=== PATIENT | female | born 1940 | race Caucasian/White ===

== ENCOUNTER → 2017-01-24 | Outpatient (CLI) | payer OTHER, MEDICARE ==
[~2017-01-24] VITALS: Ht 160 cm; Wt 68.5 kg
[~2017-01-24] MED LIST: ALPHAGAN P100 DROP/5 BOTH EYES; ANUSOL-HC21 GM PR; Aspirin E.C. PO; Ativan PO; CARDIZEM CD240 MG PO; CEFTIN250 MG PO; CEFUROXIME500 MG PO; CHERATUSSIN AC473 ML PO; DALIRESP500 MCG PO; DILTIAZEM 24HR240 MG PO; DUONEB 2.5-0.5 M3 ML IH; FLEXERIL5 MG PO; FLONASE16 G1 BOTH NARES; HYDROMET SYRUP480 ML PO; LEVAQUIN500 MG PO; LEVOCETIRIZINE D5 MG PO; LEVOFLOXACIN500 MG PO; Levothroid,Synthroid PO; PRAVACHOL40 MG PO; PREDNISONE PO; PREDNISONE20 M1 PO; PREDNISONE20 MG PO; PREDNISONE5 MG PO; PREDNISONE50 MG PO; PRINIVIL20 MG PO; PROAIR HFA8.5 GM IH; RAYOS5 MG PO; REFRESH OPTIVE10 ML BOTH EYES; SINGULAIR10 MG PO; SPIRIVA1 INHALATI IH; SYMBICORT60 INHALAT IH; SYNTHROID100 MCG PO; SYNTHROID50 MCG PO; Singulair PO; THEO-DUR,THEOC300 MG PO; THEOCHRON100 MG PO; XALATAN2.5 ML BOTH EYES; XYZAL5 MG PO; ZESTORETIC 20-1 EAC2 PO; ZESTORETIC,P1 TABLE1 PO; ZITHROMAX500 MG PO; [UNRECOGNIZED DRUG - REMARK]; [UNRECOGNIZED DRUG - REMARK]; predniSONE PO
== END | disposition home or self-care (01) ==
LOC: AMB 13:38
DX: K57.30 Diverticulosis of large intestine without perforation or abscess without bleeding (principal); K62.1 Rectal polyp; R19.7 Diarrhea, unspecified; K64.8 Other hemorrhoids
CPT/HCPCS: 88305

== ENCOUNTER 2017-10-19 14:49 | Observation (INO) | payer OTHER, MEDICARE ==
[~2017-10-19] VITALS: Ht 160 cm; Wt 65.1 kg
[~2017-10-19 14:49] MED LIST changes: +ALPHAGAN P100 DROP/5 LEFT EYE; -PRINIVIL20 MG PO; -THEOCHRON100 MG PO; +THEOCHRON300 MG PO; +ZESTRIL40 MG PO
[2017-10-19 15:46] LABS: HEMATOCRIT 41.8 % (36.0-46.0); HEMOGLOBIN 14.2 G/DL (11.9-15.5); MCH 31.1 PG (29.0-34.0); MCV 91.5 FL (83-99); PLATELET COUNT 261 K/uL (156-360); RBC DIS.WIDTH-CV 12.6 % (11.8-14.6); RBC DIS.WIDTH-SD 42.1 % (39-53); RED BLOOD COUNT 4.57 M/uL (3.80-5.20); WHITE BLOOD COUNT 7.3 K/uL (4.1-10.2)
[2017-10-19 16:07] LABS: TROP-I INTERPRETATION NEGATIVE; TROPONIN-I 0.24 ng/mL (0.0-0.30)
[2017-10-19 16:20] LABS: CHLORIDE 105 mEq/L (99-109); SODIUM 143 mEq/L (136-147)
[2017-10-19 16:21] LABS: GLUCOSE 93 mg/dL (70-99)
[2017-10-19 16:25] LABS: CREATININE 0.9 mg/dL (0.6-1.3); GFR ESTIMATE (CALCULATED) > 59 mL/min/
[2017-10-19 16:26] LABS: UREA NITROGEN (BUN) 14 mg/dL (9-23)
[2017-10-19 16:37] LABS: ALBUMIN 4.2 g/dL (3.2-4.8)
[2017-10-19 16:39] LABS: TOTAL PROTEIN 7.2 g/dL (6.4-8.3)
[2017-10-19 16:39] LABS: PTT 27.5 SEC (25-37)
[2017-10-19 16:41] LABS: TOTAL BILIRUBIN 0.7 mg/dL (0.0-1.0)
[2017-10-19 16:42] LABS: ALKALINE PHOSPHATASE 69 IU/L (3-129)
[2017-10-19 16:45] LABS: ALT (GPT) 9 IU/L (3-49); AST (GOT) 18 IU/L (2-34); DIRECT BILIRUBIN 0.2 mg/dL (0.0-0.3)
[2017-10-19 16:46] LABS: LIPASE 5 U/L (1.0-51.0)
[2017-10-19] MEDS ORDERED: THEO-24300 MG PO (17:46)
[2017-10-19] MEDS ORDERED: SYMBICORT60 INHALAT IH (17:47)
[2017-10-19] MEDS ORDERED: SINGULAIR10 MG PO (17:47)
[2017-10-19] MEDS ORDERED: VITAMIN D31000 UNI2 PO (17:47)
[2017-10-19] MEDS ORDERED: ST. JOSEPH ASPI81 MG PO (17:47)
[2017-10-19 19:47] VITALS: BP 164/85
[2017-10-19 22:12] LABS: TROP-I INTERPRETATION NEGATIVE
[2017-10-20 00:17] VITALS: BP 158/74
[2017-10-20 03:27] VITALS: BP 123/88
[2017-10-20 05:48] LABS: TROP-I INTERPRETATION NEGATIVE; TROPONIN-I 0.22 ng/mL (0.0-0.30)
[2017-10-20 06:19] LABS: CHLORIDE 107 MEQ/L (99-109); CREATININE 0.9 MG/DL (0.6-1.3); GFR ESTIMATE (CALCULATED) > 59 mL/min/; GLUCOSE 113 mg/dL (70-99); POTASSIUM 3.7 MEQ/L (3.7-5.4); SODIUM 143 MEQ/L (136-147); UREA NITROGEN (BUN) 11 mg/dL (9-23)
[2017-10-20 08:15] VITALS: BP 123/88
[2017-10-20 11:22] VITALS: BP 146/72
[2017-10-20] MEDS ORDERED: ATORVASTATIN CA40 MG PO (13:14)
[2017-10-20] MEDS ORDERED: NITROSTAT0.4 MG SL (13:14)
[2017-10-20] MEDS ORDERED: IMDUR60 MG PO (13:14)
[2017-10-20] MEDS ORDERED: DILTIAZEM 24HR240 MG PO (13:15)
== END 2017-10-20 15:47 | disposition home or self-care (01) ==
LOC: EME 14:49 → EDOF 17:04 → 5WEST 17:04 → EDOF 17:04 → ENRESERV 17:15 → 5WEST 19:24
PROVIDERS: Internal Medicine
DX: I20.0 Unstable angina (principal); R94.31 Abnormal electrocardiogram [ECG] [EKG]; R10.13 Epigastric pain; J96.10 Chronic respiratory failure, unspecified whether with hypoxia or hypercapnia; J44.9 Chronic obstructive pulmonary disease, unspecified; Z99.81 Dependence on supplemental oxygen; I10 Essential (primary) hypertension; E78.5 Hyperlipidemia, unspecified; Z87.891 Personal history of nicotine dependence; Z90.710 Acquired absence of both cervix and uterus
CPT/HCPCS: 71046; 80048; 80076; 83690; 84484; 85027; 85610; 85730; 93005; 93306; 94640; 94640 76; 94760; 94799; 99202; 99281; 99285; G0378; J7030; J7512; S0028

== ENCOUNTER 2018-03-14 07:29 | Day surgery (SDC) | payer OTHER, MEDICARE ==
[~2018-03-14] VITALS: Ht 160 cm; Wt 131.0 kg
[~2018-03-14 07:29] MED LIST changes: +ATORVASTATIN CA40 MG PO; +IMDUR60 MG PO; +LIPITOR40 MG PO; +NITROSTAT0.4 MG SL; +PAXIL10 MG PO; +ST. JOSEPH ASPI81 MG PO; +THEO-24300 MG PO; +VITAMIN D31000 UNI2 PO; +ZANTAC300 MG PO
[2018-03-14 08:15] VITALS: BP 128/78
[2018-03-14 16:00] VITALS: BP 153/77
[2018-03-14 18:55] VITALS: BP 116/60
[2018-03-14 22:08] VITALS: BP 134/63
[2018-03-14 23:08] VITALS: BP 120/80
[2018-03-15 00:26] LABS: APPEARANCE CLEAR ((CLEAR)); BILIRUBIN NEGATIVE; BLOOD SMALL; COLOR STRAW ((YELLOW)); GLUCOSE (STRIP) NEGATIVE; KETONES NEGATIVE; LEUKOCYTES NEGATIVE; NITRITE NEGATIVE; PROTEIN (STRIP) NEGATIVE; SPECIFIC GRAVITY 1.006 (1.000-1.030); UROBILINOGEN 0.2 MG/DL (0.2-1.0)
[2018-03-15 00:33] LABS: BACTERIA NONE SEEN /HPF; EPITHELIAL CELLS NONE SEEN /HPF; MUCUS NONE SEEN /LPF; RED BLOOD CELLS 0-5 /HPF (0-5); WHITE BLOOD CELLS NONE SEEN /HPF (0-5)
[2018-03-15 03:57] VITALS: BP 147/70
[2018-03-15 07:32] VITALS: BP 175/79
[2018-03-15] MEDS ORDERED: DALIRESP500 MCG PO (08:26)
[2018-03-15] MEDS ORDERED: NORCO 5/3251 TABLET PO (10:48)
[2018-03-15 11:26] VITALS: BP 117/58
== END 2018-03-15 12:57 | disposition home or self-care (01) ==
LOC: SDC 07:29 → EDSTATUS 11:00 → 2SOUTH 11:02 → ENRESERV 13:35 → EDSTATUS 15:15 → SDC 15:15 → 2EAST 16:16
PROVIDERS: Student in an Organized Health Care Education/Training Program
PROC: 0DBQ7ZX Excision of Anus, Via Natural or Artificial Opening, Diagnostic (ICD-10-PCS; principal; 2018-03-14)
PROC: 06BY0ZC Excision of Hemorrhoidal Plexus, Open Approach (ICD-10-PCS; principal; 2018-03-14)
DX: K64.8 Other hemorrhoids (principal); K62.0 Anal polyp; J44.9 Chronic obstructive pulmonary disease, unspecified; I10 Essential (primary) hypertension; E78.5 Hyperlipidemia, unspecified; E03.9 Hypothyroidism, unspecified; I45.10 Unspecified right bundle-branch block; Z79.82 Long term (current) use of aspirin; Z99.81 Dependence on supplemental oxygen
CPT/HCPCS: 81003; 88305; 93005; 94640; 94799; G0378; J1100; J2250; J3010; J7120; J7512; S0020; S0074